=== PATIENT | male | born 1985 | race Caucasian/White ===

== ENCOUNTER 2020-04-17 23:35 | Emergency (ER) | payer SELFPAY ==
[2020-04-17 23:41] VITALS: BP 117/86; PULSE 110; TEMP 97.9; BMI 25.0
[2020-04-18] MEDS ORDERED: IBUPROFEN 400 MG TABLET (FP) PO ONE (00:15)
--- NOTE | 2020-04-18 00:18 | PDOC ---
History of Present Illness - General Chief Complaint: Injury Stated Complaint: SWOLLEN HAND Time Seen by Provider: 04/18/20 00:10 - History of Present Illness Initial Comments: 04/18/20 00:18 Patient denies DICKINSON, vision change, palpitations, cough, wheezing, orthopena, PND, leg swelling/pain, N/V, F,C, CP, SOB, urinary complaints, hematuria, BPR, abdominal pain, diarrhea, constipation, lightheadedness, weakness, sensory changes. PMHx: as noted above ROS: as noted SHx: Denies Etoh, IVDA, tobacco use Allergies: NKDA ROS: GENERAL/CONSTITUTIONAL: No fever or chills. No weakness. HEAD, EYES, EARS, NOSE AND THROAT: No change in vision. No ear pain or discharge. No sore throat. CARDIOVASCULAR: No chest pain or shortness of breath RESPIRATORY: No cough, wheezing, or hemoptysis. GASTROINTESTINAL: No nausea, vomiting, diarrhea or constipation. GENITOURINARY: No dysuria, frequency, or change in urination. MUSCULOSKELETAL: No joint or muscle swelling or pain. No neck or back pain. SKIN: No rash NEUROLOGIC: No headache, vertigo, loss of consciousness, or change in strength/sensation. ENDOCRINE: No increased thirst. No abnormal weight change HEMATOLOGIC/LYMPHATIC: No anemia, easy bleeding, or history of blood clots. ALLERGIC/IMMUNOLOGIC: No hives or skin allergy. PE: GENERAL: Awake, alert, and fully oriented, in no acute distress HEAD: No signs of trauma, normocephalic, atraumatic EYES: PERRLA, EOMI, sclera anicteric, conjunctiva clear ENT: Auricles normal inspection, hearing grossly normal, nares patent, oropharynx clear without exudates. Moist mucosa NECK: Normal ROM, supple, no lymphadenopathy, JVD, or masses LUNGS: No distress, speaks full sentences, clear to auscultation bilaterally HEART: Regular rate and rhythm, normal S1 and S2, no murmurs, rubs or gallops, peripheral pulses normal and equal bilaterally. ABDOMEN: Soft, nontender, normoactive bowel sounds. No guarding, no rebound. No masses EXTREMITIES : Normal inspection, Normal range of motion, no edema. No clubbing or cyanosis NEUROLOGICAL: Cranial nerves II through XII grossly intact. Normal speech, normal gait, no focal sensorimotor deficits SKIN: Warm, Dry, normal turgor, no rashes or lesions noted Past History - Medical History Allergies/Adverse Reactions: Allergies Allergy/AdvReac Type Severity Reaction Status Date / Time No Known Allergies Allergy Verified 04/17/20 23:41 COPD: No - Psycho-Social/Smoking History Smoking History: Never smoked - Substance Abuse Hx (Audit-C & DAST Scrn) How often the patient has a drink containing alcohol: 2-3 times / week Score: In Men: 4 or > Positive; In Women: 3 or > Positive: 3 Screen Result (Pos requires Nsg. Audit-10AR): Negative *Physical Exam - Vital Signs Last Vital Signs Temp Pulse Resp BP Pulse Ox 97.9 F 110 H 18 117/86 99 04/17/20 23:39 04/17/20 23:39 04/17/20 23:39 04/17/20 23:39 04/17/20 23:39
[2020-04-18] MEDS ORDERED: IBUPROFEN 600 MG TABLET (FP) PO ONE (00:26)
--- NOTE | 2020-04-18 00:57 | PDOC ---
History of Present Illness - General Chief Complaint: Injury Stated Complaint: SWOLLEN HAND Time Seen by Provider: 04/18/20 00:10 History Source: Patient Exam Limitations: No Limitations - History of Present Illness Initial Comments: 34 y/o male presenting to [facility] ER complaining of pain and swelling to right hand for the past week after punching a wall. Notes he is unable to move the 4th or 5th digit. Lost feeling in the digits two days ago. Denies fevers, chills, or skin wounds. Right hand dominant. Past History - Medical History Allergies/Adverse Reactions: Allergies Allergy/AdvReac Type Severity Reaction Status Date / Time No Known Allergies Allergy Verified 04/17/20 23:41 Other medical history: Pt denies past medical history - Surgical History Other Surgical History: No past surgical history. - Psycho-Social/Smoking History Smoking History: Never smoked - Substance Abuse Hx (Audit-C & DAST Scrn) How often the patient has a drink containing alcohol: 2-3 times / week Score: In Men: 4 or > Positive; In Women: 3 or > Positive: 3 Screen Result (Pos requires Nsg. Audit-10AR): Negative Review of Systems - Review of Systems Able to Perform ROS?: Yes Constitutional: No: Chills, Fever HEENTM: No: Blurred Vision Respiratory: No: Shortness of Breath Cardiac (ROS): No: Chest Pain Musculoskeletal: Yes: Joint Pain, Joint Swelling, Muscle Weakness Integumentary: No: Bruising Neurological: No: Headache *Physical Exam - Vital Signs Last Vital Signs Temp Pulse Resp BP Pulse Ox 97.9 F 110 H 18 117/86 99 04/17/20 23:39 04/17/20 23:39 04/17/20 23:39 04/17/20 23:39 04/17/20 23:39 - Physical Exam Vital signs and nursing notes reviewed. Constitutional- Well-developed, well-nourished adult male in no acute distress or obvious discomfort. Found semi-fowlers on hospital bed. Answered all questions appropriately and completely. Head- Normocephalic. No obvious external signs of trauma. Neck- Supple, trachea is midline. Cardiovascular / Chest- Regular rate. Peripheral pulses- radial pulses full and equal bilaterally. Respiratory- Breathing unlabored. Speaking in multi-word responses without pausing. Neuro- Alert and oriented x4. Moving all four extremities spontaneously. No facial asymmetry. No slurred speech. Right hand: Hand is diffusely swollen and tender on both the palmar and dorsal surfaces. Point tenderness to hypothenar eminence. Good active ROM with first three digits, wrist, and elbow. Unable to actively flex or extend 4th and 5th digits. No sensation on those digits. No pain with passive flexion or extension. No erythema or skin breakdown. Skin- Warm and dry. Psych- Affect- appropriate. Mood- normal. Speech was non-labored, non- pressured. ED Treatment Course - RADIOLOGY Radiology Studies Ordered: Category Date Time Status FOREARM- RIGHT [RAD] Stat Radiology 04/18/20 00:20 Taken WRIST W/HAND-RIGHT* [RAD] Stat Radiology 04/18/20 00:15 Taken - Medications Given in the ED: ED Medications Discontinued Medications Generic Name Dose Route Start Last Admin Trade Name Freq PRN Reason Stop Dose Admin Ibuprofen 400 mg 04/18/20 00:15 04/18/20 00:28 Motrin - PO 04/18/20 00:16 Not Given ONCE ONE Medical Decision Making - Medical Decision Making 34 y/o male with pain, swelling, and loss of motor and sensory function in the ulnar nerve distribution. Plain films revealed fracture of the past of the 5th metacarpal per ED wet read. 18 Apr 2020 00:56 AM Page sent for Dr. Singleton of orthopedic service cooperative education coordinator through office answering service. Awaiting call back. 18 Apr 2020 01:07 AM Telephone discussion with Dr. Mani ARMENDARIZ ( ). Verbally appraised of the pts HPI, ED course, and current plan of management. Deidentified images were transmitted. After reportedly discussing the case with her attending, the MARCELLO recommended the pt be transferred to a higher level of care. 18 Apr 2020 02:16 AM Case discussed with Dr. Amin, orthopedic attending, at [facility] via telephone. Stated he would not accept this patient and requested hand service be contacted. 18 Apr 2020 02:24 AM Unable to locate the pt in the department. report clerk stated she believed he left after collecting the CD with his radiographs on the physician desk. Called the pts number on file ([phone]). Left message requesting an urgent call back. 18 Apr 2020 06:42 AM Pt eloped from the department. No call back received at this time. Case discussed with ED Attending Dr. Echevarria. Reyes Sargent M.D., PGY3 Emergency Medicine Residency Discharge - Discharge Information Problems reviewed: Yes Clinical Impression/Diagnosis: Metacarpal bone fracture Qualifiers: Encounter type: initial encounter Metacarpal bone: fifth Fracture type: closed Metacarpal location: base Fracture alignment: nondisplaced Laterality: right Qualified Code(s): S62.346A - Nondisplaced fracture of base of fifth metacarpal bone, right hand, initial encounter for closed fracture Condition: Unchanged/Unknown Disposition: ELOPED - Follow up/Referral - Patient Discharge Instructions - Post Discharge Activity
--- NOTE | 2020-04-18 01:29 | PDOC ---
Attending Attestation - Resident Resident Name: Reyes Sargent - HPI HPI: 04/18/20 00:59 Pt presents to the ED complaining of pain and swelling in his right hand after punching a wall 8 days ago. Denies other injuries. states that 2 days ago, his hand became more swollen and that he began to experience numbness and in ability to move his 4th and 5th digits. - Physicial Exam PE: 04/18/20 01:04 Agree with resident exam. Patient is alert and mildly intoxicated, but in no acute distress. + diffuse swelling over the dorsum of the hand, worse towards the ulnar side. + diffuse tenderness, worse at the 5th carpal metacarpal joints. + ulnar clawing of the 4th and 5th digits. No light touch sensation of the 4th or 5th digits. Patient reports that he is unable to move his 4th or 5th digits. - Medical Decision Making 04/18/20 01:29 Pt presents to the Ed complaining of pain and swelling to the R hand after punching a wall 8 days ago. absent sensation and unable to move his 4th and 5th digits. Case discussed with MARCELLO Lewis, personal vehicle advisor for Dr. Fink, who recommends transfer to [facility] for evaluation by hand surgeon. Discharge - Discharge Information Problems reviewed: Yes Clinical Impression/Diagnosis: Metacarpal bone fracture Qualifiers: Encounter type: initial encounter Metacarpal bone: fifth Fracture type: closed Metacarpal location: base Fracture alignment: nondisplaced Laterality: right Qualified Code(s): S62.346A - Nondisplaced fracture of base of fifth metacarpal bone, right hand, initial encounter for closed fracture Condition: Unchanged/Unknown Disposition: ELOPED - Follow up/Referral - Patient Discharge Instructions - Post Discharge Activity
== END 2020-04-18 02:29 | disposition left against medical advice (07) ==
LOC: JER 23:35
DX: S62.346A Nondisplaced fracture of base of fifth metacarpal bone, right hand, initial encounter for closed fracture (principal)
CPT/HCPCS: 73090-TC-RT-FY; 73110-TC-RT-FY; 73130-TC-RT-FY; 99284-25